=== PATIENT | female | born 1970 | race Caucasian/White ===

== ENCOUNTER 2017-05-06 11:53 | Emergency (ER) | payer BC, OTHER ==
[~2017-05-06] VITALS: Ht 160 cm; Wt 84.6 kg
[~2017-05-06 11:53] MED LIST: NAPR500 PO; SYNT25TA PO; Z.0.UNKNOWN PO
[2017-05-06 12:18] VITALS: BP 178/83; PULSE 75; RESP 16; TEMP 98.6; O2SAT 97
[2017-05-06] MEDS ORDERED: LEXA10TA PO (12:43)
[2017-05-06] MEDS ORDERED: TRIA1CAP6 PO (12:43)
[2017-05-06] MEDS ORDERED: SYNT25TA PO (12:45)
--- NOTE | 2017-05-06 13:01 | PD ---
HPI Chief Complaint: Flank/Kidney Pain Time Seen by Provider: 12:51 Travel History International Travel<30 days: No Contact w/Intl Traveler<30days: No Traveled to known affect area: No History of Present Illness HPI This 47-year-old female says she is having left flank pain off and on for 3 weeks. Apparently been on some antibiotics and feels like his been any good. She thinks she has a urinary tract infection. She has a history of hypertension and takes triamterene. Her blood pressure is elevated recently and has doubled the dose of the triamterene PFSH Past Medical History Anxiety: Yes Hypertension: Yes Kidney Stones: Yes Thyroid Disease: Yes Tetanus Vaccination: Unknown Influenza Vaccination: No ?: Unknown LMP: " MANY YEARS AGO " Menopausal: Yes Past Surgical History Cholecystectomy: Yes Other Surgery: Yes (UMBILICAL HERNIA , ) Social History Alcohol Use: Yes ([facility]) Tobacco Use: No (QUIT 2004) Substance Use: No Allergies-Medications (Allergen,Severity, Reaction): Coded Allergies: amoxicillin (Unverified Allergy, Severe, STOMACH ACHE, 04/26/17) Reported Meds & Prescriptions Reported Meds & Active Scripts Active Reported Synthroid (Levothyroxine Sodium) 25 Mcg Tab 25 Mcg PO DAILY Dyrenium (Triamterene) 50 Mg Cap 50 Mg PO DAILY Lexapro (Escitalopram Oxalate) 10 Mg Tab 10 Mg PO DAILY Review of Systems General / Constitutional: No: Fever, Chills Eyes: No: Diploplia HENT: Positive: Headaches, No: Lightheadedness Cardiovascular: No: Chest Pain or Discomfort, Palpitations Respiratory: No: Cough Gastrointestinal: No: Nausea, Vomiting Genitourinary: Positive: Flank Pain, No: Urgency Musculoskeletal: No: Myalgias, Arthralgias Skin: No Rash, No Itching Neurologic: Positive: Weakness Endocrine: No: Heat Intolerance Hematologic/Lymphatic: No: Easy Bruising Physical Exam Narrative GENERAL: Well-developed female SKIN: Focused skin assessment warm/dry. HEAD: Atraumatic. Normocephalic. EYES: Pupils equal and round. No scleral icterus. No injection or drainage. ENT: No nasal bleeding or discharge. Mucous membranes pink and moist. NECK: Trachea midline. No JVD. CARDIOVASCULAR: Regular rate and rhythm. No murmur appreciated. RESPIRATORY: No accessory muscle use. Clear to auscultation. Breath sounds equal bilaterally. GASTROINTESTINAL: Abdomen soft, non-tender, nondistended. Hepatic and splenic margins not palpable. MUSCULOSKELETAL: No obvious deformities. No clubbing. No cyanosis. No edema. NEUROLOGICAL: Awake and alert. No obvious cranial nerve deficits. Motor grossly within normal limits. Normal speech. PSYCHIATRIC: Appropriate mood and affect; insight and judgment normal. Data Data Last Documented VS Vital Signs Date Time Temp Pulse Resp B/P (MAP) Pulse Ox O2 Delivery O2 Flow Rate FiO2 05/06/17 12:18 98.6 75 16 178/83 (114) 97 Orders Orders Complete Blood Count With Diff (05/06/17 12:58) Comprehensive Metabolic Panel (05/06/17 12:58) Urinalysis - C+S If Indicated (05/06/17 12:58) Labs Laboratory Tests Test 05/06/17 13:15 White Blood Count 11.1 TH/MM3 Red Blood Count 4.95 MIL/MM3 Hemoglobin 13.6 GM/DL Hematocrit 41.6 % Mean Corpuscular Volume 84.1 FL Mean Corpuscular Hemoglobin 27.5 PG Mean Corpuscular Hemoglobin Concent 32.7 % Red Cell Distribution Width 13.3 % Platelet Count 416 TH/MM3 Mean Platelet Volume 7.7 FL Neutrophils (%) (Auto) 60.7 % Lymphocytes (%) (Auto) 30.9 % Monocytes (%) (Auto) 6.4 % Eosinophils (%) (Auto) 1.4 % Basophils (%) (Auto) 0.6 % Neutrophils # (Auto) 6.7 TH/MM3 Lymphocytes # (Auto) 3.4 TH/MM3 Monocytes # (Auto) 0.7 TH/MM3 Eosinophils # (Auto) 0.2 TH/MM3 Basophils # (Auto) 0.1 TH/MM3 CBC Comment DIFF FINAL Differential Comment Urine Collection Type CLEAN CATCH Urine Color YELLOW Urine Turbidity CLEAR Urine pH 7.0 Urine Specific [place]cell[place] 1.010 Urine Protein NEG mg/dL Urine Glucose (UA) NEG mg/dL Urine Ketones NEG mg/dL Urine Occult Blood SMALL Urine Nitrite NEG Urine Bilirubin NEG Urine Leukocyte Esterase NEG Urine RBC 0-3 /hpf Urine WBC 0-2 /hpf Urine Squamous Epithelial Cells 0-5 /hpf Microscopic Urinalysis Comment CULT NOT INDICATED Blood Urea Nitrogen 11 MG/DL Creatinine 0.53 MG/DL Random Glucose 80 MG/DL Total Protein 7.6 GM/DL Albumin 3.3 GM/DL Calcium Level 8.8 MG/DL Alkaline Phosphatase 79 U/L Aspartate Amino Transf (AST/SGOT) 29 U/L Alanine Aminotransferase (ALT/SGPT) 35 U/L Total Bilirubin 0.3 MG/DL Sodium Level 141 MEQ/L Potassium Level 3.5 MEQ/L Chloride Level 104 MEQ/L Carbon Dioxide Level 27.6 MEQ/L Anion Gap 9 MEQ/L Estimat Glomerular Filtration Rate 123 ML/MIN MDM Medical Decision Making Medical Screen Exam Complete: Yes Emergency Medical Condition: Yes Medical Record Reviewed: Yes Differential Diagnosis Differential includes hypertension, kidney stone, pyelonephritis Narrative Course Urine is negative for significant blood or white cells. Her blood pressure has been elevated and has been elevated for several weeks apparently. I will prescribe some lisinopril will be released. Diagnosis Primary Impression: Hypertension Qualified Codes: I10 - Essential (primary) hypertension Scripts Lisinopril (Lisinopril) 20 Mg Tab 20 MG PO DAILY for 30 Days, #30 TAB 0 Refills Prov: Jp Radford MD 05/06/17 Disposition: 01 DISCHARGE HOME Condition: Stable Jp Radford MD May 06, 2017 13:01
[2017-05-06 13:21] LABS: AUTOMATED NEUTROPHIL # 6.7 TH/MM3 (1.8-7.7); BASOPHIL # 0.1 TH/MM3 (0-0.2); BASOPHIL % 0.6 % (0.0-2.0); EOSINOPHIL # 0.2 TH/MM3 (0-0.4); EOSINOPHIL % 1.4 % (0.0-4.0); HEMATOCRIT 41.6 % (35.0-46.0); LYMPH % 30.9 % (9.0-44.0); LYMPHOCYTE # 3.4 TH/MM3 (1.0-4.8); MEAN CELL VOLUME 84.1 FL (80.0-100.0); MEAN CORPUSCULAR HEMOGLOBIN 27.5 PG (27.0-34.0); MEAN CORPUSCULAR HGB CONC 32.7 % (32.0-36.0); MONO % 6.4 % (0.0-8.0); NEUT % 60.7 % (16.0-70.0); PLATELET COUNT 416 TH/MM3 (150-450); RED BLOOD COUNT 4.95 MIL/MM3 (4.00-5.30); RED CELL DISTRIBUTION WIDTH 13.3 % (11.6-17.2); WHITE BLOOD COUNT 11.1 TH/MM3 (4.0-11.0)
[2017-05-06 13:22] LABS: BLOOD, URINE SMALL (NEG); GLUCOSE,URINE NEG (NEG); KETONE, URINE NEG (NEG); NITRITE,URINE NEG (NEG)
[2017-05-06 13:24] LABS: METHOD OF COLLECTION CLEAN CATCH; URINE COLOR YELLOW (YELLW/STRAW)
[2017-05-06 13:25] LABS: HEMO FLAGS DIFF FINAL
[2017-05-06 13:26] LABS: COMMENT (UR) CULT NOT INDICATED; CULTURE IF INDICATED CULT NOT INDICATED; RBC, URINE 0-3 /hpf (0-3); SQUAMOUS EPITHELIAL CELL URINE 0-5 /hpf (0-5); WBC, URINE 0-2 /hpf (0-5)
[2017-05-06 13:31] LABS: CHLORIDE 104 MEQ/L (98-107); POTASSIUM 3.5 MEQ/L (3.5-5.1); SODIUM (NA) 141 MEQ/L (136-145)
[2017-05-06 13:35] LABS: ANION GAP 9 MEQ/L (5-15); BICARBONATE 27.6 MEQ/L (21.0-32.0); BLOOD UREA NITROGEN 11 MG/DL (7-18)
[2017-05-06 13:38] LABS: ALT (GPT) 35 U/L (10-53); AST (GOT) 29 U/L (15-37); GLOMERULAR FILTRATION RATE 123 ML/MIN (>89)
[2017-05-06 13:39] LABS: TOTAL BILIRUBIN ADULT 0.3 MG/DL (0.2-1.0)
[2017-05-06 13:41] LABS: ALKALINE PHOSPHATASE 79 U/L (45-117)
[2017-05-06] MEDS ORDERED: LISI-515 PO (14:15)
[2017-05-06 14:31] VITALS: BP 135/79
== END 2017-05-06 14:34 | disposition home or self-care (01) ==
LOC: PHED 11:53
DX: I10 Essential (primary) hypertension (principal); Z87.891 Personal history of nicotine dependence
CPT/HCPCS: 80053; 81001; 85025; 99283